=== PATIENT | female | born 1985 | race African-American/Black ===

== ENCOUNTER 2024-03-31 20:07 | Emergency (ER) | payer BC, SELFPAY ==
--- NOTE | ~2024-03-31 | CT_ITS ---
EXAMINATION: CT facial bones w con DATE: 03/31/2024 21:42 INDICATION: hard palate swelling . TECHNIQUE: Computed tomography (CT) of the facial bones and maxillofacial region was performed withou t intravenous contrast. Automated exposure control and iterative reconstruction technique were employ ed. The dose-length product was 395.58 mGy-cm. COMPARISON: None. FINDINGS: Soft Tissues: No significant superficial soft tissue swelling. Facial bones: No acute fracture. No lytic or blastic process. Torus palatinus. Eyes: The globes are intact. The soft tissue planes of the orbits are maintained. Paranasal Sinuses: The visualized aerated spaces are clear. Foreign Bodies: No radiopaque foreign bodies. Other Findings: Mild bilateral palatine tonsil enlargement. IMPRESSION: No evidence of acute facial bone fracture. Mild bilateral palatine tonsil enlargement. 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 Reviewed, dictated and finalized at location [facility]. P IMPRESSION: No evidence of acute facial bone fracture. Mild bilateral palatine tonsil enlargement. 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
[2024-03-31 20:09] VITALS: BP 131/85; PULSE 82; RESP 17; TEMP 36.1; O2SAT 100
--- NOTE | 2024-03-31 20:49 | ED.GENADULT ---
HPI - General Adult General Chief complaint: Dental/Oral Stated complaint: Pain to roof of mouth Time Seen by Provider: 03/31/24 20:39 History of Present Illness HPI narrative: Patient 38-year-old female who presents emergency department chief complaint of ulcer mouth. Patient states that she was eating some chips and pizza and reports that she ulcerations developed in the ratio her mouth patient states it has been getting worse reports uncomfortable Related Data Allergies Allergy/AdvReac Type Severity Reaction Status Date / Time No Known Allergies Allergy Unknown Verified 03/31/24 20:12 Review of Systems Review of Systems: A 10 system review of systems was completed on the patient and is negative except for what is stated in the HPI. Nursing and ancillary documentation was reviewed. PMFSH Past Medical History Medical History Annual physical exam Chest pain at rest Encounter for counseling regarding contraception Gastroesophageal reflux disease without esophagitis History of COVID-19 History of delivery x 2 @ 7 months Non-seasonal allergic rhinitis Pollen allergies Primary insomnia Tonsillitis Surgical History Surgical History H/O breast augmentation S/P augmentation mammaplasty [place] teeth removed Family History Family History Father Hypertension Mother Cerebrovascular accident Other Asthma Social History Social History Social History: Single Smoking status: Never smoker Second hand tobacco smoke exposure: No Alcohol intake: current Alcohol use details: Occasionally Substance use: never Substance use type: does not use Lack of Transportation: No Lack of Food: Never True Current Housing: I Have Housing Concerned About Future Housing: No Difficulty Paying Gas/Electric Bills: No Difficulty Paying for Meds: No Currently Unemployed: No Education: Don't Know Difficulty w/ Childcare or Family Care: No Living arrangements: with family Occupation/Education: occupation Gender identity (if verbalized by the patient): Female Sexual Orientation (if Verbalized by the Patient): Straight or Heterosexual Exam Narrative: GENERAL: Well-appearing, well-nourished, and in no acute distress. HEAD: Normocephalic, atraumatic. EYES: PERRLA and EOMI. ENT: Nares clear, no rhinorrhea or epistaxis. Mucous membranes moist. 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 There is no abscess present NECK: Supple. CHEST: Clear to auscultation. No respiratory distress. HEART: Regular rate and rhythm. No murmur heard. Normal peripheral pulses. ABDOMEN: Soft, nontender, nondistended, normal active bowel sounds. EXTREMITIES: Normal range of motion. No edema. SKIN: Warm, dry, no rash. NEURO: No focal deficits. Alert and oriented x3. PSYCH: Normal mood and affect. Course Vital Signs Vital signs: Vital Signs Temperature 36.1 C L 03/31/24 20:09 Pulse Rate 82 03/31/24 20:09 Respiratory Rate 17 03/31/24 20:09 Blood Pressure 131/85 03/31/24 20:09 Pulse Oximetry 100 03/31/24 20:09 Oxygen Delivery Room Air 03/31/24 20:09 Temperature 36.1 C L 03/31/24 20:09 Pulse Rate 86 03/31/24 21:46 Respiratory Rate 20 03/31/24 21:46 Blood Pressure 132/91 H 03/31/24 21:46 Pulse Oximetry 100 03/31/24 21:46 Oxygen Delivery Room Air 03/31/24 20:09 Medical Decision Making Vital Signs Vital Signs: Vital Signs Temperature 36.1 C L 03/31/24 20:09 Pulse Rate 82 03/31/24 20:09 Respiratory Rate 17 03/31/24 20:09 Blood Pressure 131/85 03/31/24 20:09 Pulse Oximetry 100 03/31/24 20:09 Oxygen Delivery Room Air 03/31/24 20:09 Temperature 36.1 C L 03/31/24 20:09 Pulse Rate 86 03/31/24 21:46 Respiratory Rate 20 03/31/24 21:46 Blood Pressure 132/91 H 03/31/24 21:46 Pulse Oximetry 100 03/31/24 21:46 Oxygen Delivery Room Air 03/31/24 20:09 Lab Data 03/31/24 21:03 03/31/24 21:03 Labs: Lab Results 03/31/24 Range/Units 21:03 WBC 5.5 (4.5-10.0) K/mm3 RBC 3.73 L (4.2-5.4) M/mm3 Hgb 11.8 L (12.0-15.0) g/dL Hct 34.5 L (37.0-47.0) % MCV 92.5 (80-100) fl MCH 31.6 (26-34) pg MCHC 34.2 (32-36) g/dl RDW 11.8 (11.5-14.5) % Plt Count 284 (150-375) k/mm3 MPV 9.5 (7.4-10.4) fl Immature Gran % (Auto) 0.2 (0-0.5) % Neut % (Auto) 30.7 L (45.5-73.1) % Lymph % (Auto) 60.6 H (18.3-44.2) % [place] % (Auto) 6.2 (2.6-8.5) % Eos % (Auto) 1.8 (0-4.4) % Baso % (Auto) 0.5 (0.2-1.2) % Lymph # (Auto) 3.34 H (0.9-3.2) K/mm3 [place] # (Auto) 0.3 (0.1-0.6) K/mm3 Eos # (Auto) 0.1 (0-0.3) K/mm3 Baso # (Auto) 0.0 (0.0-0.1) K/mm3 Abs Immat Gran (auto) 0.01 (0.00-0.031) K/mm3 Absolute Neuts (auto) 1.7 (1.3-6.7) K/mm3 Absolute Nucleated RBC 0.000 (0.0-0.012) K/mm3 Nucleated RBC % 0.0 (0.0-0.2) % Sodium 139 (137-145) mmol/L Potassium 4.0 (3.4-5.0) mmol/L Chloride 106 (98-107) mmol/L Carbon Dioxide 26 (22-30) mmol/L Anion Gap 7 (4-12) mmol/L BUN 16 (7-17) mg/dL Creatinine 0.80 (0.7-1.0) mg/dL Estim Creat Clear Calc 72 ml/min Estimated GFR > 60 (59 - ) Glucose 104 (65-110) mg/dL Calcium 9.4 (8.4-10.2) mg/dL Total Bilirubin 0.1 L (0.2-1.3) mg/dL AST 20 (14-36) U/L ALT 9 (6-35) U/L Alkaline Phosphatase 47 (38-126) U/L Total Protein 8.0 (6.3-8.2) g/dL Albumin 4.1 (3.5-5.1) g/dL Discharge Plan Discharge Clinical Impression: Torus palatinus, Infected abrasion of oral mucosa Patient Disposition: Home, Self-Care Condition: Stable Instructions: Antibiotic Form, Gingivostomatitis (ED) Prescriptions: New amoxicillin 500 mg capsule 500 mg PO Q12H Qty: 20 0RF No Action norethindrone ac-eth estradiol [Microgestin 1.5/30 (21)] 1.5-30 mg-mcg tablet 1 tablet PO DAILY Qty: 84 2RF montelukast 10 mg tablet 10 mg PO QHS Qty: 90 1RF Follow-up/Referrals: Day Eddy MD [Primary Care Provider] - Time of Disposition: 22:03
[2024-03-31 21:08] LABS: Basophils Percent Auto 0.5 % (0.2-1.2); Eosinophils Absolute Auto 0.1 K/mm3 (0-0.3); Eosinophils Percent Auto 1.8 % (0-4.4); Hematocrit 34.5 % (37.0-47.0); Hemoglobin 11.8 g/dL (12.0-15.0); Immature Granulocyte Absolute 0.01 K/mm3 (0.00-0.031); Immature Granulocyte Percent A 0.2 % (0-0.5); Lymphocytes Absolute Auto 3.34 K/mm3 (0.9-3.2); Lymphocytes Percent Auto 60.6 % (18.3-44.2); Mean Corpuscular HGB Conc 34.2 g/dl (32-36); Mean Corpuscular Hemoglobin 31.6 pg (26-34); Mean Corpuscular Volume 92.5 fl (80-100); Mean Platelet Volume 9.5 fl (7.4-10.4); Monocytes Absolute Auto 0.3 K/mm3 (0.1-0.6); Monocytes Percent Auto 6.2 % (2.6-8.5); Neutrophils Absolute Auto 1.7 K/mm3 (1.3-6.7); Neutrophils Percent Auto 30.7 % (45.5-73.1); Platelet Count Result 284 k/mm3 (150-375); Red Blood Count 3.73 M/mm3 (4.2-5.4); Red Cell Distribution Width 11.8 % (11.5-14.5); White Blood Count 5.5 K/mm3 (4.5-10.0)
[2024-03-31 21:19] LABS: Alanine Aminotransferase 9 U/L (6-35); Albumin Level 4.1 g/dL (3.5-5.1); Alkaline Phosphatase 47 U/L (38-126); Anion Gap 7 mmol/L (4-12); Aspartate Amino Transferase 20 U/L (14-36); Bilirubin,Total 0.1 mg/dL (0.2-1.3); Blood Urea Nitrogen 16 mg/dL (7-17); Calcium 9.4 mg/dL (8.4-10.2); Carbon Dioxide 26 mmol/L (22-30); Chloride 106 mmol/L (98-107); Estimated CRCL calculation 72 ml/min; Estimated Glomerular Filt Rate > 60; Glucose 104 mg/dL (65-110); Sodium 139 mmol/L (137-145)
[2024-03-31 21:46] VITALS: BP 132/91; PULSE 86; RESP 20; O2SAT 100
== END 2024-03-31 22:12 | disposition home or self-care (01) ==
LOC: ANHED 20:54
PROVIDERS: Emergency Provider Emergency Medicine; PCP Family Medicine
DX: M27.0 Developmental disorders of jaws (principal); S00.512A Abrasion of oral cavity, initial encounter; L08.9 Local infection of the skin and subcutaneous tissue, unspecified
CPT/HCPCS: 36415; 70487; 80053; 85025; 99284; Q9967